=== PATIENT | male | born 1990 | race African-American/Black ===

== ENCOUNTER 2016-11-02 17:21 | Emergency (ER) | payer SELFPAY ==
[~2016-11-02] VITALS: Ht 172.7 cm; Wt 63.0 kg
[2016-11-02] MEDS ORDERED: KETOROLAC 60MG/2ML VIAL IM ONE (18:30)
[2016-11-02] MEDS ORDERED: LIDOCAINE HCL 1% 20ML VIAL (Pyxis) INJ INFIL ONE (19:15)
[2016-11-02 22:17] VITALS: BP 138/78
== END 2016-11-02 22:20 | disposition home or self-care (01) ==
LOC: ER 17:21
DX: S63.256A Unspecified dislocation of right little finger, initial encounter (principal); F12.10 Cannabis abuse, uncomplicated; W21.05XA Struck by basketball, initial encounter; Y93.67 Activity, basketball; Y92.39 Other specified sports and athletic area as the place of occurrence of the external cause
CPT/HCPCS: 26770; 73130; 96372; 99284; J1885; J3490